=== PATIENT | female | born 1990 | race Two or more races ===

== ENCOUNTER → 2016-12-31 | Outpatient (CLI) | payer OTHER ==
--- NOTE | 2016-12-31 17:12 | REP ---
Right long finger series: Four views: History: Finger pain. Findings: Four views of the right long finger demonstrate normal bones, joints, and soft tissues. No fracture or subluxation is seen. Impression: Negative views of the right long finger. Signed by Albert Land MD 01/01/2017 10:43 A
== END ==
LOC: M LRY 16:34
PROVIDERS: ATTEND Physician Assistant
DX: M79.609 Pain in unspecified limb (principal)

== ENCOUNTER 2018-04-02 11:27 | Emergency (ER) | payer OTHER ==
[2018-04-02] MEDS: NS 1,000 ML IV (12:27)
[2018-04-02] MEDS: ONDANSETRON 4MG/2ML VIAL (J2405) IV (12:27)
[2018-04-02 12:42] LABS: BASO % 0.3 % (0.0-1.0); EOS # 0.1 10^3/uL (0.0-0.50); EOS % 0.5 % (0.0-3.0); HEMATOCRIT 36.7 % (36.0-47.0); HEMOGLOBIN 12.5 g/dl (12.0-15.5); IMMATURE GRANULOCYTE % 1.2 % (0-3.0); LYMPH # 2.5 10^3/uL (1.5-6.5); LYMPH % 16.4 % (24.0-44.0); MEAN CORPUSCULAR HEMOGLOBIN 30.9 pg (27.0-33.0); MEAN CORPUSCULAR HGB CONC 34.1 g/dl (32.0-36.5); MEAN CORPUSCULAR VOLUME 90.6 fl (80.0-96.0); MONO # 1.2 10^3/uL (0.0-0.8); MONO % 7.5 % (0.0-5.0); NEUTROPHILS # 11.3 10^3/uL (1.8-7.7); NEUTROPHILS % 74.1 % (36.0-66.0); PLATELET COUNT, AUTOMATED 298 10^3/uL (150-450); RED BLOOD COUNT 4.05 10^6/uL (4.00-5.40); RED CELL DISTRIBUTION WIDTH 13.1 % (11.5-14.5); WHITE BLOOD COUNT 15.3 10^3/uL (4.0-10.0)
[2018-04-02 12:51] LABS: ALBUMIN 2.6 GM/DL (3.2-5.2); ALBUMIN/GLOBULIN RATIO 0.57 (1.00-1.93); ALKALINE PHOSPHATASE 103 U/L (45-117); ALT/SGPT 15 U/L (12-78); AMYLASE 47 U/L (25-115); ANION GAP 9 MEQ/L (8-16); AST/SGOT 12 U/L (7-37); BILIRUBIN,DIRECT < 0.1 MG/DL (0.0-0.2); BILIRUBIN,TOTAL 0.2 MG/DL (0.2-1.0); BLOOD UREA NITROGEN 8 MG/DL (7-18); CARBON DIOXIDE LEVEL 22 MEQ/L (21-32); CHLORIDE LEVEL 106 MEQ/L (98-107); CREATININE FOR GFR 0.58 MG/DL (0.55-1.30); GLOMERULAR FILTRATION RATE > 60.0 (>60); GLUCOSE, FASTING 79 MG/DL (70-100); LIPASE 71 U/L (73-393); POTASSIUM SERUM 3.9 MEQ/L (3.5-5.1); SODIUM LEVEL 137 MEQ/L (136-145); TOTAL PROTEIN 7.2 GM/DL (6.4-8.2)
== END 2018-04-02 14:01 | disposition home or self-care (01) ==
LOC: M ED 11:27
DX: J06.9 Acute upper respiratory infection, unspecified (principal); G43.909 Migraine, unspecified, not intractable, without status migrainosus; Z88.5 Allergy status to narcotic agent; Z91.048 Other nonmedicinal substance allergy status; F17.210 Nicotine dependence, cigarettes, uncomplicated
CPT/HCPCS: J2405

== ENCOUNTER 2018-04-16 19:41 | Outpatient (CLI) | payer OTHER | END 2018-04-16 20:30 | disposition home or self-care (01) | LOC: M LDO 19:41 | DX: O99.89 Other specified diseases and conditions complicating pregnancy, childbirth and the puerperium (principal); Z3A.37 37 weeks gestation of pregnancy; R05 Cough; R07.81 Pleurodynia; M94.0 Chondrocostal junction syndrome [Tietze] | CPT/HCPCS: 59025 ==

== ENCOUNTER 2018-04-26 11:31 | Inpatient (IN) | payer OTHER, MEDICAID ==
[2018-04-26 12:57] LABS: HEMATOCRIT 36.6 % (36.0-47.0); HEMOGLOBIN 12.6 g/dl (12.0-15.5); MEAN CORPUSCULAR HEMOGLOBIN 31.7 pg (27.0-33.0); MEAN CORPUSCULAR HGB CONC 34.4 g/dl (32.0-36.5); MEAN CORPUSCULAR VOLUME 92.2 fl (80.0-96.0); PLATELET COUNT, AUTOMATED 259 10^3/uL (150-450); RED BLOOD COUNT 3.97 10^6/uL (4.00-5.40); RED CELL DISTRIBUTION WIDTH 13.6 % (11.5-14.5)
[2018-04-26] MEDS: LACTATED RINGER'S 1000 ML IV (15:01)
[2018-04-26] MEDS: OXYTOCIN DRIP 30 UNITS in APPROPRIATE DILUENT 1 EA IV (18:31)
[2018-04-26] MEDS: LR 1,000 ML IV (18:32)
[2018-04-27] MEDS ORDERED: FENTANYL 2MCG/ML ROPIVACAINE 0.2% IN 0.9% NACL 200ML IVBAG As Ordered (00:35)
[2018-04-27] MEDS ORDERED: FENTANYL/ROPIVACAINE/NACL BAG 200 ML EPIDURAL (02:00)
[2018-04-27] MEDS ORDERED: LACTATED RINGER'S 1000 ML IV (02:00)
[2018-04-27] MEDS ORDERED: EPIDURAL/PCA KEYS XX (02:00)
[2018-04-27] MEDS ORDERED: ePHEDrine SULFATE 25 MG/5 ML(5MG/ML) SYRINGE IV (02:00)
[2018-04-27] MEDS ORDERED: ONDANSETRON 4MG/2ML VIAL (J2405) IV (02:00)
[2018-04-27] MEDS ORDERED: diphenhydrAMINE INJ 50MG/ML VIAL (J1200) IV (02:00)
[2018-04-27] MEDS ORDERED: EPIDURAL COMMENT XX (02:00)
[2018-04-27] MEDS ORDERED: REFRIGERATOR IV KEYS XX (02:00)
[2018-04-27] MEDS ORDERED: NALOXONE INJ 0.4 MG/1 ML VIAL (J2310) IV (02:00)
[2018-04-27] MEDS: OXYTOCIN INJ 10 UNITS/ML VIAL (J2590) IV (07:30)
[2018-04-27 07:44] LABS: CORD GAS ABE A -2.7; CORD GAS HCO3 A 23.9 MEQ/L; CORD GAS O2 SAT A 41.2 %; CORD GAS PCO2 A 47.6 mmHg; CORD GAS PH A 7.319 UNITS; CORD GAS PO2 A 18.5 mmHg; CORD GAS SBC A 20.7 MEQ/L; CORD GAS TCO2 A 25.4 MEQ/L
[2018-04-27 07:45] LABS: CORD GAS ABE V -2.6; CORD GAS HCO3 V 22.7 MEQ/L; CORD GAS O2 SAT V 58.5 %; CORD GAS PCO2 V 41.4 mmHg; CORD GAS PH V 7.357 UNITS; CORD GAS PO2 V 23.8 mmHg; CORD GAS SBC V 21.2 MEQ/L
[2018-04-27] MEDS ORDERED: ANUSOL HC CREAM 30GM TOP (08:15)
[2018-04-27] MEDS ORDERED: ACETAMINOPHEN 500 MG TAB PO (08:15)
[2018-04-27] MEDS ORDERED: MOM 30ML SUSPENSION UDC PO (08:15)
[2018-04-27] MEDS ORDERED: MEASLES,MUMPS,RUBELLA VACCINE INJ (MMR-II) (90707) SC (08:15)
[2018-04-27] MEDS ORDERED: METHYLERGONOVINE MALEATE 0.2 MG TAB PO (08:15)
[2018-04-27] MEDS ORDERED: RHOGAM 300 MCG (1500 IU) INJ (J2790) IM (08:15)
[2018-04-27] MEDS ORDERED: DIBUCAINE 1% OINTMENT 30GM TOP (08:15)
[2018-04-27] MEDS: PRENATAL VITAMINS CHEWABLE TABLET PO (09:00)
[2018-04-27] MEDS ORDERED: CYCLOBENZAPRINE 10 MG TAB PO (20:45)
[2018-04-27] MEDS: IBUPROFEN 800 MG TAB PO (20:58)
[2018-04-27] MEDS: DOCUSATE SODIUM 100 MG CAP PO (20:58)
[2018-04-28 06:24] LABS: HEMATOCRIT 31.7 % (36.0-47.0); MEAN CORPUSCULAR HEMOGLOBIN 31.5 pg (27.0-33.0); MEAN CORPUSCULAR HGB CONC 33.1 g/dl (32.0-36.5); MEAN CORPUSCULAR VOLUME 95.2 fl (80.0-96.0); PLATELET COUNT, AUTOMATED 218 10^3/uL (150-450); RED BLOOD COUNT 3.33 10^6/uL (4.00-5.40); RED CELL DISTRIBUTION WIDTH 14.1 % (11.5-14.5)
[2018-04-28 06:30] LABS: HEMOGLOBIN 10.5 g/dl (12.0-15.5)
[2018-04-28] MEDS: PRENATAL VITAMINS CHEWABLE TABLET PO (09:00)
[2018-04-28] MEDS: CYCLOBENZAPRINE 10 MG TAB PO (09:41)
== END 2018-04-28 16:00 | disposition home or self-care (01) | DRG 775 ==
LOC: M LDO 11:31 → M LDI 12:02 → M OBS 04-27 09:28
PROVIDERS: Obstetrics & Gynecology
PROC: 10E0XZZ Delivery of Products of Conception, External Approach (ICD-10-PCS; principal; 2018-04-27)
PROC: 0HQ9XZZ Repair Perineum Skin, External Approach (ICD-10-PCS; 2018-04-27)
DX: O99.214 Obesity complicating childbirth (principal); Z3A.38 38 weeks gestation of pregnancy; Z37.0 Single live birth; E66.9 Obesity, unspecified; Z68.33 Body mass index [BMI] 33.0-33.9, adult; F17.210 Nicotine dependence, cigarettes, uncomplicated; O64.5XX0 Obstructed labor due to compound presentation, not applicable or unspecified; O70.0 First degree perineal laceration during delivery; M94.0 Chondrocostal junction syndrome [Tietze]; O99.334 Smoking (tobacco) complicating childbirth; O26.893 Other specified pregnancy related conditions, third trimester

== ENCOUNTER → 2018-07-13 | Outpatient (CLI) | payer OTHER, MEDICAID | LOC: M RAD 14:01 | DX: R05 Cough (principal); R06.01 Orthopnea | CPT/HCPCS: 71046 ==

== ENCOUNTER → 2018-07-17 | Outpatient (REF) | payer OTHER ==
[2018-07-17 14:24] LABS: HCG, SERUM QUANTITATIVE 2534 MIU/ML
== END ==
LOC: M SFHCLERA 10:57
DX: Z30.430 Encounter for insertion of intrauterine contraceptive device (principal)
CPT/HCPCS: 84702

== ENCOUNTER → 2018-07-20 | Outpatient (REF) | payer OTHER ==
[2018-07-20 14:04] LABS: HCG, SERUM QUANTITATIVE 4888 MIU/ML
== END ==
LOC: M SFHCLERA 10:21
DX: Z30.430 Encounter for insertion of intrauterine contraceptive device (principal)

== ENCOUNTER → 2018-07-24 | Outpatient (REF) | payer OTHER ==
[2018-07-24 17:11] LABS: HCG, SERUM QUANTITATIVE 9134 MIU/ML
== END ==
LOC: M SFHCPLAZ 12:08
DX: Z32.01 Encounter for pregnancy test, result positive (principal)

== ENCOUNTER → 2018-08-04 | Outpatient (CLI) | payer OTHER | LOC: M WHC 08:33 | DX: Z32.01 Encounter for pregnancy test, result positive (principal); Z3A.01 Less than 8 weeks gestation of pregnancy | CPT/HCPCS: 76801 ==

== ENCOUNTER → 2018-08-11 | Outpatient (CLI) | payer OTHER ==
[2018-08-11 16:05] LABS: AMORPHOUS SEDIMENT LARGE (NEGATIVE); APPEARANCE, URINE CLOUDY (CLEAR); BACTERIA, URINE AUTO NEGATIVE (NEGATIVE); BILIRUBIN, URINE AUTO NEGATIVE (NEGATIVE); BLOOD, URINE BLOOD NEGATIVE (NEGATIVE); COLOR, URINE AMBER (YELLOW); GLUCOSE, URINE (UA) AUTO NEGATIVE (NEGATIVE); KETONE, URINE AUTO TRACE mg/dL (NEGATIVE); LEUKOCYTE ESTERASE, URINE AUTO NEGATIVE (NEGATIVE); MUCUS, URINE SMALL (NEGATIVE); NITRITE, URINE AUTO NEGATIVE (NEGATIVE); PROTEIN, URINE AUTO NEGATIVE (NEGATIVE); RBC, URINE AUTO 3 /HPF (0-3); SPECIFIC GRAVITY URINE AUTO 1.023 (1.002-1.035); SQUAMOUS EPITHELIAL CELL UR AU 6 /HPF (0-6); UROBILINOGEN, URINE AUTO 0.2 mg/dL (0.0-2.0); WBC, URINE AUTO 1 /HPF (0-3)
[2018-08-11 17:37] LABS: CHLAMYDIA DNA AMPLIFICATION NEGATIVE (NEGATIVE); GC DNA AMPLIFICATION NEGATIVE (NEGATIVE)
[2018-08-12 08:12] LABS: HIV 1&2 SCREEN CENTAUR NEGATIVE (NEGATIVE)
== END ==
LOC: M LAB 15:21
DX: Z34.90 Encounter for supervision of normal pregnancy, unspecified, unspecified trimester (principal)
CPT/HCPCS: 36415

== ENCOUNTER → 2018-08-31 | Outpatient (CLI) | payer OTHER ==
[2018-08-31 13:28] LABS: BASO % 0.1 % (0.0-1.0); EOS # 0.1 10^3/uL (0.0-0.50); EOS % 1.2 % (0.0-3.0); HEMATOCRIT 37.9 % (36.0-47.0); HEMOGLOBIN 12.8 g/dl (12.0-15.5); IMMATURE GRANULOCYTE % 0.2 % (0-3.0); LYMPH # 2.5 10^3/uL (1.5-4.5); MEAN CORPUSCULAR HEMOGLOBIN 30.5 pg (27.0-33.0); MEAN CORPUSCULAR HGB CONC 33.8 g/dl (32.0-36.5); MEAN CORPUSCULAR VOLUME 90.2 fl (80.0-96.0); MONO # 0.6 10^3/uL (0.0-0.8); MONO % 6.7 % (0.0-5.0); NEUTROPHILS # 5.4 10^3/uL (1.8-7.7); NEUTROPHILS % 62.8 % (36.0-66.0); PLATELET COUNT, AUTOMATED 299 10^3/uL (150-450); RED CELL DISTRIBUTION WIDTH 12.3 % (11.5-14.5); WHITE BLOOD COUNT 8.5 10^3/uL (4.0-10.0)
[2018-08-31 14:20] LABS: HEPATITIS C VIRUS ABY INDEX 0.1 INDEX (<0.8)
[2018-08-31 14:20] LABS: HBsAg Prenatal NEGATIVE (NEGATIVE); HIV 1&2 SCREEN CENTAUR NEGATIVE (NEGATIVE); RUBELLA IgG QUALITATIVE IMMUNE (IMMUNE)
[2018-08-31 15:18] LABS: CHLAMYDIA DNA AMPLIFICATION NEGATIVE (NEGATIVE); GC DNA AMPLIFICATION NEGATIVE (NEGATIVE)
== END ==
LOC: M SMT 10:39
DX: Z36.89 Encounter for other specified antenatal screening (principal)
CPT/HCPCS: 86762

== ENCOUNTER 2018-10-01 16:05 | Emergency (ER) | payer OTHER ==
[~2018-10-01] VITALS: Ht 160 cm; Wt 81.6 kg
[~2018-10-01 16:05] MED LIST: ANUS2.5C2 TOP; COLA100C5 PO; DIBU10OI TOP; MAPA500T2 PO; MOTR200T44 PO; Prenatal PO; ZOFR4TAB14 PO
[2018-10-01] MEDS ORDERED: ZOFR4TAB16 PO (16:15)
[2018-10-01 16:49] LABS: APPEARANCE, URINE HAZY (CLEAR); BACTERIA, URINE AUTO NEGATIVE (NEGATIVE); BILIRUBIN, URINE AUTO NEGATIVE (NEGATIVE); BLOOD, URINE BLOOD NEGATIVE (NEGATIVE); COLOR, URINE YELLOW (YELLOW); GLUCOSE, URINE (UA) AUTO NEGATIVE (NEGATIVE); KETONE, URINE AUTO TRACE mg/dL (NEGATIVE); LEUKOCYTE ESTERASE, URINE AUTO 1+ (NEGATIVE); MUCUS, URINE SMALL (NEGATIVE); NITRITE, URINE AUTO NEGATIVE (NEGATIVE); PROTEIN, URINE AUTO NEGATIVE (NEGATIVE); RBC, URINE AUTO 2 /HPF (0-3); SPECIFIC GRAVITY URINE AUTO 1.021 (1.002-1.035); SQUAMOUS EPITHELIAL CELL UR AU 4 /HPF (0-6); UROBILINOGEN, URINE AUTO 0.2 mg/dL (0.0-2.0); WBC, URINE AUTO 4 /HPF (0-3)
[2018-10-01 16:57] LABS: BASO % 0.2 % (0.0-1.0); EOS # 0.1 10^3/uL (0.0-0.50); HEMATOCRIT 40.8 % (36.0-47.0); HEMOGLOBIN 13.9 g/dl (12.0-15.5); LYMPH # 2.7 10^3/uL (1.5-4.5); LYMPH % 19.3 % (24.0-44.0); MEAN CORPUSCULAR HEMOGLOBIN 30.5 pg (27.0-33.0); MEAN CORPUSCULAR HGB CONC 34.1 g/dl (32.0-36.5); MEAN CORPUSCULAR VOLUME 89.7 fl (80.0-96.0); MONO # 0.6 10^3/uL (0.0-0.8); MONO % 3.9 % (0.0-5.0); NEUTROPHILS # 10.5 10^3/uL (1.8-7.7); NEUTROPHILS % 75.2 % (36.0-66.0); PLATELET COUNT, AUTOMATED 332 10^3/uL (150-450); RED BLOOD COUNT 4.55 10^6/uL (4.00-5.40)
[2018-10-01] MEDS ORDERED: NS 1,000 ML IV ONE (17:15)
[2018-10-01] MEDS ORDERED: METOCLOPRAMIDE INJ 10MG/2ML VIAL (J2765) IV ONE (17:15)
--- NOTE | 2018-10-01 17:53 | REP ---
OB ULTRASOUND: Real-time sonographic evaluation of the gravid uterus is performed. There is a single living intrauterine gestation. The estimated gestational age is 15 weeks 6 days based on the first ultrasound, EDC 03/19/2019. Today's measurements indicate appropriate growth. BPD 35 mm = 16 weeks 6 days, at the 86th percentile. HC 124 mm = 16 weeks 2 days, at the 62nd percentile. AC 112 mm = 17 weeks 0 days, at the 80th percentile. Femur length 20 mm = 16 weeks 0 days, at the 52nd percentile. HC/AC ratio 1.11 within normal range. Estimated weight 158 grams at the 70th percentile. Cervix is closed and measures 3.7 cm in length. heart rate 155 beats per minute. position breech. Placenta is posterior and fundal with no previa or abruption. Amniotic fluid within normal limits. Focal round area in the anterior uterus measures 4.9 x 4.4 x 3.1 cm likely representing a uterine contraction. Electronically Signed by Kyler Martinez MD 10/01/2018 08:26 P
[2018-10-01] MEDS ORDERED: REGL10TA6 PO (17:59)
[2018-10-01 18:12] VITALS: BP 112/83
== END 2018-10-01 18:13 | disposition home or self-care (01) ==
LOC: M ED 16:05
DX: O20.8 Other hemorrhage in early pregnancy (principal); Z3A.16 16 weeks gestation of pregnancy; O99.332 Smoking (tobacco) complicating pregnancy, second trimester; Z79.899 Other long term (current) drug therapy; Z88.5 Allergy status to narcotic agent; Z91.89 Other specified personal risk factors, not elsewhere classified
CPT/HCPCS: 76811; 81001; 85025; 86850; 86900; 86901; 96374; 99284; J2765

== ENCOUNTER → 2018-10-19 | Outpatient (CLI) | payer OTHER ==
[~2018-10-19] MED LIST changes: +REGL10TA6 PO; +ZOFR4TAB16 PO
--- NOTE | 2018-10-19 11:45 | REP ---
Clinical: Anatomical evaluation. Comparison: 10/01/2018 . Findings: Examination demonstrates a single live intrauterine in cephalic presentation. motion is identified by technologist. Placenta is noted posterior fundal and grade zero without evidence for placenta previa or abruption. Amniotic fluid volume is normal. Cervix measures 3.2 cm in length and appears closed. No evidence for nuchal cord. Gestational age by LMP 18 weeks 0 days with CARLOS 03/22/2019 . Gestational age by current measurements 18 week 6 days with CARLOS 03/16/2019 . FHR equals 139 beats per minute. BPD 4.4 cm 19 weeks 1 day HC 16.2 cm 19 weeks 0 days AC 13.6 cm 19 weeks 0 days FL 2.9 cm 18 weeks 5 days HL 2.9 cm 19 weeks 3 days HC/AC ratio 1.20 Estimated weight 264 grams ( 64th percentile). Anatomical assessment demonstrates normal structures including cranium, choroid plexus, cavum, cerebellum/posterior fossa, facial features, lungs, four-chamber heart/ventricular outflow tracts, diaphragm, stomach, cord insertion/three-vessel cord, kidneys/bladder, spine, and extremities. Impression: Single live intrauterine in cephalic presentation demonstrating appropriate interval growth. Anatomical assessment is complete and normal. No gross abnormalities are identified. Electronically Signed by Jaspal Perkins MD 10/19/2018 11:37 A
== END ==
LOC: M LRY 09:11
PROVIDERS: ATTEND Advanced Practice Midwife
DX: Z36.89 Encounter for other specified antenatal screening (principal); Z3A.18 18 weeks gestation of pregnancy

== ENCOUNTER 2018-12-02 20:33 | Outpatient (CLI) | payer MEDICAID, OTHER ==
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
== END 2018-12-02 21:45 | disposition home or self-care (01) ==
LOC: M LDO 20:33
PROVIDERS: ATTEND Advanced Practice Midwife
DX: O36.8120 Decreased fetal movements, second trimester, not applicable or unspecified (principal); O26.892 Other specified pregnancy related conditions, second trimester; R10.30 Lower abdominal pain, unspecified; Z3A.24 24 weeks gestation of pregnancy

== ENCOUNTER → 2018-12-18 | Outpatient (CLI) | payer OTHER ==
[~2018-12-18] MED LIST changes: +PROZ20CA11 PO; +ROBILIQ13 PO
[2018-12-18 12:58] LABS: HEMOGLOBIN 11.7 g/dl (12.0-15.5); MEAN CORPUSCULAR HGB CONC 32.5 g/dl (32.0-36.5); MEAN CORPUSCULAR VOLUME 95.2 fl (80.0-96.0); PLATELET COUNT, AUTOMATED 317 10^3/uL (150-450); RED BLOOD COUNT 3.78 10^6/uL (4.00-5.40); WHITE BLOOD COUNT 8.8 10^3/uL (4.0-10.0)
== END ==
LOC: M LAB 11:27
PROVIDERS: ATTEND Advanced Practice Midwife
DX: Z36.89 Encounter for other specified antenatal screening (principal); Z3A.26 26 weeks gestation of pregnancy

== ENCOUNTER 2018-12-23 17:02 | Outpatient (CLI) | payer OTHER ==
[~2018-12-23] VITALS: Ht 160 cm; Wt 81.4 kg
[~2018-12-23 17:02] MED LIST changes: -PROZ20CA11 PO; -ROBILIQ13 PO
[2018-12-23 17:24] VITALS: BP 112/62
[2018-12-23] MEDS ORDERED: ROBILIQ13 PO (18:36)
[2018-12-23] MEDS ORDERED: PROZ20CA11 PO (18:36)
== END 2018-12-23 19:30 | disposition home or self-care (01) ==
LOC: M LDO 17:02
PROVIDERS: ATTEND Specialist
DX: Z04.3 Encounter for examination and observation following other accident (principal); O99.89 Other specified diseases and conditions complicating pregnancy, childbirth and the puerperium; R10.30 Lower abdominal pain, unspecified; Z3A.27 27 weeks gestation of pregnancy; W10.2XXA Fall (on)(from) incline, initial encounter; Y92.89 Other specified places as the place of occurrence of the external cause; Y93.89 Activity, other specified; Y99.8 Other external cause status

== ENCOUNTER → 2019-02-24 | Outpatient (REF) | payer OTHER, MEDICAID ==
[~2019-02-24] MED LIST changes: +PROZ20CA11 PO; +ROBILIQ13 PO
== END ==
LOC: M LAB REF 13:14
PROVIDERS: ATTEND Advanced Practice Midwife
DX: Z34.83 Encounter for supervision of other normal pregnancy, third trimester (principal)

== ENCOUNTER 2019-03-09 00:55 | Outpatient (CLI) | payer MEDICAID, OTHER ==
[~2019-03-09] VITALS: Ht 160 cm; Wt 85.1 kg
[2019-03-09 01:16] VITALS: BP 111/68
[2019-03-09 02:07] VITALS: BP 111/60
[2019-03-09] MEDS ORDERED: ACETAMINOPHEN 500 MG TAB PO ONE (03:00)
[2019-03-09 03:33] VITALS: BP 109/65
[2019-03-09 05:26] VITALS: BP 103/55
[2019-03-09 06:13] VITALS: BP 107/53
--- NOTE | 2019-03-09 09:45 | IPNPDOC ---
Text Note Date of Service The patient was seen on 03/09/19. NOTE Subjective: Patient is a 28-year-old female who is a at 38.5 weeks gestation. She presents with complaints of irregular contractions. Reports active movement. Denies leaking of fluid. Denies vaginal bleeding. She reports her contractions started at 2330 and have gotten more intense but still not consistent. Objective: VS: see below. FHR is 120, moderate variability, positive accelerations, no decelerations. Contractions irregular. Patient able to rest and sleep through contractions. After 3 hours there was no cervical change. Patient was 2/50/ballotable, soft, midposition, no show. Assessment: IUP at 38.4 weeks gestation, Category I FHR tracing, not in active labor. Plan: Patient discharged to home. Labor precautions reviewed. Access to care, kick count, labor signs reviewed, abdominal trauma, and danger signs reviewed. Patient to follow-up with routine OB appointment, which is scheduled this Friday. VS,Emerybone, I+O VS, Fishbone, I+O Vital Signs Date Time Temp Pulse Resp B/P (MAP) Pulse Ox O2 Delivery O2 Flow Rate FiO2 03/09/19 06:13 67 107/53 (71) 03/09/19 05:26 98.2 16 MARGOTH ENGLAND CNM Mar 09, 2019 09:45
== END 2019-03-09 06:15 | disposition home or self-care (01) ==
LOC: M LDO 00:55
PROVIDERS: ATTEND Advanced Practice Midwife
DX: O26.893 Other specified pregnancy related conditions, third trimester (principal); O47.1 False labor at or after 37 completed weeks of gestation; Z3A.38 38 weeks gestation of pregnancy

== ENCOUNTER 2019-03-12 19:27 | Outpatient (CLI) | payer OTHER ==
[~2019-03-12] VITALS: Ht 160 cm; Wt 86.2 kg
[2019-03-12 19:45] VITALS: BP 112/60
--- NOTE | 2019-03-12 21:59 | IPNPDOC ---
Text Note Date of Service The patient was seen on 03/12/19. NOTE Outpatient 28yo CARLOS 05/19/19. Presents @ 39 wks with reports of UC on and off for the last few days. Denies LOF or bleeding. Reports good activity. States had episodes of diarrhea last night and this am due to reza. Reports feeling dehydrated. States the contractions she had earlier today have diminished in frequency and strength NAD, family present VSS Abdomen soft, gravid Rare UC NST Cat I initially with episodes of Cat II BPP ordered SVE /-3, unchanged from yesterday's office exam, no show on glove. VS,Fishbone, I+O VS, Fishbone, I+O Vital Signs Date Time Temp Pulse Resp B/P (MAP) Pulse Ox O2 Delivery O2 Flow Rate FiO2 03/12/19 19:45 98.3 83 18 112/60 (77) Miranda Salgado CNM Mar 12, 2019 21:59
--- NOTE | 2019-03-12 22:05 | REPVR ---
EXAM: US Biophysical Profile Without Non-Stress Test EXAM DATE/TIME: 03/12/2019 9:26 PM CLINICAL HISTORY: 28 years old, female; Abnormal findings; Abnormal radiological screening; Third; ; Additional info: Nonreassuring nst TECHNIQUE: Imaging protocol: US biophysical profile without non-stress testing. COMPARISON: US OBS COMPLETE 10/19/2018 9:25 AM FINDINGS: Other findings: Cephalic presentation. Cervix measures 3.6 cm. Amniotic fluid index 18.6 cm. heart rate 132 beats per minute. Breathin/2 Gross body movements: 2/2 tone: 2/2 Qualitative amniotic fluid: 2/2 SD ratio of the umbilical cord is 2.05. IMPRESSION: This biophysical profile score 8 out of 8. Electronically signed by: Rob Paez On 03/12/2019 22:04:48 PM
--- NOTE | 2019-03-12 22:30 | IPNPDOC ---
Text Note Date of Service The patient was seen on 03/12/19. NOTE BPP 8/ Fetus is very active Pt desires IOL this weekend. Reviewed social induction issues Discharged home with instructions and social induction protocol reviewed. VS,Fishbone, I+O VS, Fishbone, I+O Vital Signs Date Time Temp Pulse Resp B/P (MAP) Pulse Ox O2 Delivery O2 Flow Rate FiO2 03/12/19 19:45 98.3 83 18 112/60 (77) Miranda Salgado CNM Mar 12, 2019 22:30
== END 2019-03-12 22:34 | disposition home or self-care (01) ==
LOC: M LDO 19:27
PROVIDERS: ATTEND Advanced Practice Midwife
DX: O26.893 Other specified pregnancy related conditions, third trimester (principal); Z3A.39 39 weeks gestation of pregnancy

== ENCOUNTER 2019-03-13 10:17 | Inpatient (IN) | payer OTHER ==
[~2019-03-13] VITALS: Ht 160 cm; Wt 85.0 kg
[2019-03-13] VITALS (23 sets, daily range): BP systolic 98–131; BP diastolic 53–73
[2019-03-13 11:44] LABS: HEMOGLOBIN 11.1 g/dl (12.0-15.5); MEAN CORPUSCULAR HEMOGLOBIN 31.3 pg (27.0-33.0); MEAN CORPUSCULAR HGB CONC 33.6 g/dl (32.0-36.5); PLATELET COUNT, AUTOMATED 207 10^3/uL (150-450); RED BLOOD COUNT 3.55 10^6/uL (4.00-5.40); WHITE BLOOD COUNT 8.8 10^3/uL (4.0-10.0)
[2019-03-13] MEDS ORDERED: CALCIUM GLUCONATE 1,000 MG in D5W MINI-BAG PLUS 100 ML IV PRN (14:00)
[2019-03-13] MEDS ORDERED: OXYTOCIN DRIP 30 UNITS in APPROPRIATE DILUENT 1 EA IV SCH (14:30)
[2019-03-13] MEDS ORDERED: MAG Sulf (L&D) 4 GM/100 ML 4 GM in APPROPRIATE DILUENT 1 EA IV ONE (14:30)
[2019-03-13] MEDS: LR 1,000 ML IV SCH ×3 (14:39→22:42)
[2019-03-13] MEDS ORDERED: MAG Sulf (OBGYN) 20GM/500ML 20,000 MG in APPROPRIATE DILUENT 1 EA IV SCH (15:00)
--- NOTE | 2019-03-13 17:10 | HPE ---
DATE OF ADMISSION: 03/13/2019 REASON FOR ADMISSION: Induction of labor. HISTORY OF PRESENT ILLNESS: Ms. Davis is a 28-year-old 3, para 1 who presents at 39 weeks 1 day estimated gestational age by a 7-week ultrasound for induction of labor. She initiated care in the first trimester and has been appropriate throughout. PAST MEDICAL HISTORY: None. PAST SURGICAL HISTORY: 1. She has had eye surgery. 2. Ankle surgery. 3. Breast augmentation. 4. Tonsillectomy. OBSTETRICAL HISTORY: She is a 3, para 1. She has had one term vaginal delivery proven to 7 pounds 13 ounces. MEDICATIONS: vitamins and Prozac. ALLERGIES: CODEINE. PHYSICAL EXAMINATION: VITAL SIGNS: Stable. She is afebrile. She has a category 1 heart rate tracing. GENERAL APPEARANCE: She is well appearing in no acute distress. LUNGS: Clear to auscultation bilaterally. CARDIOVASCULAR: Heart regular rate and rhythm. ABDOMEN: Gravid, nontender. Estimated weight (EFW) 3300 grams. CERVICAL: She was 3 cm dilated, 50% effaced, -3 station. LABORATORY DATA: Blood type is A positive. Antibody screen is negative. Rubella is immune. RPR is nonreactive. Hepatitis surface antigen is negative. HIV is negative. Hepatitis C is nonreactive. Chlamydia and gonorrhea screens are negative. She had a normal 1-hour Glucola. She is GBS negative. ASSESSMENT: Ms. Davis is a 28-year-old 3, para 1 who presents for an induction of labor at 39 weeks and 1 day estimated gestational age. 2. Reassuring status. PLAN: 1. Admit to labor and delivery, complete blood count (CBC), RPR, type and screen. 2. Patient has been thoroughly counseled in regard to induction of labor. I discussed medication as well as procedures performed in labor and delivery. She has also been verbally consented for emergency surgery, blood products, anesthesia, and desires to proceed with admission. 3. We will initiate her induction with Pitocin.
--- NOTE | 2019-03-13 23:23 | NUR ---
L&D Note: S: Feeling more uncomfortable. Pitocin off for cat II tracing O: vss, AF gen: cx: 4/75/-2,AROM clear A/P: 28yo IOL at 39w1d - recheck in 3-4 hrs Giselle Goddard MD
[2019-03-13] MEDS ORDERED: FENTANYL 2MCG/ML ROPIVACAINE 0.2% IN 0.9% NACL 100ML IVBAG As Ordered ONE (23:45)
[2019-03-14] VITALS (41 sets, daily range): BP systolic 92–145; BP diastolic 50–83
[2019-03-14] MEDS: LR 1,000 ML IV SCH ×2 (01:14→04:47)
[2019-03-14] MEDS ORDERED: EPIDURAL COMMENT XX SCH (03:00)
[2019-03-14] MEDS ORDERED: NALOXONE INJ 0.4 MG/1 ML VIAL (J2310) IV PRN (03:00)
[2019-03-14] MEDS ORDERED: REFRIGERATOR IV KEYS XX PRN (03:00)
[2019-03-14] MEDS ORDERED: ePHEDrine SULFATE 25 MG/5 ML(5MG/ML) SYRINGE IV PRN (03:00)
[2019-03-14] MEDS ORDERED: LACTATED RINGER'S 1000 ML IV PRN (03:00)
[2019-03-14] MEDS ORDERED: diphenhydrAMINE INJ 50MG/ML VIAL (J1200) IV PRN (03:00)
[2019-03-14] MEDS ORDERED: ONDANSETRON 4MG/2ML VIAL (J2405) IV PRN ×2 (03:00→08:45)
[2019-03-14] MEDS ORDERED: FENTANYL/ROPIVACAINE/NACL BAG 100 ML EPIDURAL SCH (03:00)
[2019-03-14] MEDS ORDERED: EPIDURAL/PCA KEYS XX PRN (03:00)
[2019-03-14] MEDS ORDERED: OXYTOCIN DRIP 30 UNITS in APPROPRIATE DILUENT 1 EA IV SCH (08:38)
[2019-03-14] MEDS ORDERED: MOM 30ML SUSPENSION UDC PO PRN (08:45)
[2019-03-14] MEDS ORDERED: DIBUCAINE 1% OINTMENT 30GM TOP PRN (08:45)
[2019-03-14] MEDS ORDERED: ACETAMINOPHEN TAB 650MG DOSE (2X325MG) PO PRN (08:45)
[2019-03-14] MEDS ORDERED: ANUSOL HC CREAM 30GM TOP PRN (08:45)
[2019-03-14] MEDS ORDERED: METHYLERGONOVINE MALEATE 0.2 MG TAB PO PRN (08:45)
[2019-03-14] MEDS ORDERED: RHOGAM 300 MCG (1500 IU) INJ (J2790) IM SCH (08:45)
[2019-03-14] MEDS ORDERED: DOCUSATE SODIUM 100 MG CAP PO PRN (08:45)
[2019-03-14] MEDS ORDERED: MEASLES,MUMPS,RUBELLA VACCINE INJ (MMR-II) (90707) SC SCH (08:45)
[2019-03-14] MEDS ORDERED: ACETAMINOPHEN 500 MG TAB PO PRN (08:45)
[2019-03-14] MEDS ORDERED: IBUPROFEN 600 MG TAB PO PRN (08:45)
[2019-03-14] MEDS: PRENATAL VITAMINS CHEWABLE TABLET PO SCH (09:10)
[2019-03-14] MEDS: IBUPROFEN 800 MG TAB PO PRN (09:10)
--- NOTE | 2019-03-14 10:21 | DN ---
DATE OF DELIVERY: 03/14/2019 TIME OF : 0818 hours. GENDER: Female. SCORES: 9 and 9. WEIGHT: 3460 grams or 7 pounds 10 ounces. LACERATION: First-degree midline laceration. ESTIMATED BLOOD LOSS: 300 mL. ANESTHESIA: Epidural. COUNTS: 5 laparotomy sponges accounted for prior to and after delivery. One sharp removed from delivery field. DELIVERY NOTE: On 03/14/2019, at 0818 hours, Ms. Davis, a 28-year-old, 3, now para 2, had a spontaneous vaginal delivery of a live born female infant, scores 9 and 9, weight was 3460 grams, 7 pounds 10 ounces. Head was delivered occiput anterior (OA) followed by delivery of shoulders and corpus. Infant was handed to mom with a good cry. Cord was clamped times two, it was cut by patient's mother. Placenta was then drained and delivered grossly intact. A premixed bag of 500 mL of normal saline with the 30 units of Pitocin was then bolused along with uterine massage. The uterus firm. On inspection, there was a first-degree midline laceration, which was repaired with #3-0 Vicryl Rapide. On reinspection, cervix, vagina, and perineum were grossly intact and hemostatic. Mom and baby recovered in stable condition. Mom has decided to name their daughter
[2019-03-15 06:00] VITALS: BP 110/67
--- NOTE | 2019-03-15 07:46 | NUR ---
PPD#1 S: Doing well w/o complaints. O: vss, AF Gen: well appearing abd: soft, nttp, FF@u-3 A/P: PPD# 1 s/p -recovering in stable condition -cont routine care Giselle Goddard MD
[2019-03-15] MEDS: PRENATAL VITAMINS CHEWABLE TABLET PO SCH (08:43)
[2019-03-15] MEDS: IBUPROFEN 800 MG TAB PO PRN (12:12)
[2019-03-15] MEDS ORDERED: ACET-683 PO (15:03)
[2019-03-15] MEDS ORDERED: IBUP80TA PO (15:03)
== END 2019-03-15 16:00 | disposition home or self-care (01) | DRG 560 ==
LOC: M LDI 10:17 → M OBS 03-14 10:31
PROVIDERS: ADMIT Obstetrics & Gynecology; ATTEND Obstetrics & Gynecology
PROC: 3E033VJ Introduction of Other Hormone into Peripheral Vein, Percutaneous Approach (ICD-10-PCS; 2019-03-13)
PROC: 10E0XZZ Delivery of Products of Conception, External Approach (ICD-10-PCS; principal; 2019-03-14)
PROC: 0HQ9XZZ Repair Perineum Skin, External Approach (ICD-10-PCS; 2019-03-14)
DX: O70.0 First degree perineal laceration during delivery (principal); Z37.0 Single live birth; Z3A.39 39 weeks gestation of pregnancy

== ENCOUNTER → 2019-05-05 | Outpatient (CLI) | payer OTHER ==
[~2019-05-05] MED LIST changes: +ACET-683 PO; +IBUP80TA PO
== END ==
LOC: M LAB 09:14
PROVIDERS: ATTEND Advanced Practice Midwife
DX: N91.2 Amenorrhea, unspecified (principal)

== ENCOUNTER 2019-09-19 10:45 | Emergency (ER) | payer OTHER ==
--- NOTE | 2019-09-19 11:20 | REP ---
Clinical: Chronic cough . Comparison: 07/13/2018 . Technique: PA and lateral. Findings: The mediastinum and cardiac silhouette are normal. The lung coelho are clear and without acute consolidation, effusion, or pneumothorax. The skeletal structures are intact and normal. Impression: 1. No acute cardiopulmonary process. Electronically Signed by Jaspal Perkins MD 09/19/2019 11:11 A
[2019-09-19 12:30] LABS: BASO % 0.2 % (0.0-1.0); EOS # 0.2 10^3/uL (0.0-0.5); EOS % 2.6 % (0.0-3.0); HEMATOCRIT 41.4 % (36.0-47.0); HEMOGLOBIN 13.7 g/dl (12.0-15.5); LYMPH # 3.6 10^3/uL (1.5-5.0); LYMPH % 42.3 % (24.0-44.0); MEAN CORPUSCULAR HEMOGLOBIN 29.7 pg (27.0-33.0); MEAN CORPUSCULAR HGB CONC 33.1 g/dl (32.0-36.5); MEAN CORPUSCULAR VOLUME 89.6 fl (80.0-96.0); MONO # 0.7 10^3/uL (0.0-0.8); MONO % 7.8 % (0.0-5.0); NEUTROPHILS % 46.9 % (36.0-66.0); PLATELET COUNT, AUTOMATED 453 10^3/uL (150-450); RED BLOOD COUNT 4.62 10^6/uL (4.00-5.40); WHITE BLOOD COUNT 8.5 10^3/uL (4.0-10.0)
[2019-09-19 13:06] LABS: INFLUENZA A AMPLIFICATION NEGATIVE (NEGATIVE); INFLUENZA B AMPLIFICATION NEGATIVE (NEGATIVE)
[2019-09-19] MEDS ORDERED: PSEU-52 PO (13:28)
[2019-09-19] MEDS ORDERED: TESS100C PO (13:28)
[2019-09-19 13:46] VITALS: BP 123/66
== END 2019-09-19 13:52 | disposition home or self-care (01) ==
LOC: M ED 10:45
DX: J06.9 Acute upper respiratory infection, unspecified (principal); F17.200 Nicotine dependence, unspecified, uncomplicated; F41.9 Anxiety disorder, unspecified; Z79.899 Other long term (current) drug therapy; Z87.09 Personal history of other diseases of the respiratory system

== ENCOUNTER 2019-10-29 22:33 | Emergency (ER) | payer OTHER ==
[~2019-10-29] VITALS: Ht 160 cm; Wt 78.6 kg
[~2019-10-29 22:33] MED LIST changes: +PSEU-52 PO; +TESS100C PO
[2019-10-29 22:34] VITALS: BP 131/97
[2019-10-30 00:43] LABS: INFLUENZA A AMPLIFICATION NEGATIVE (NEGATIVE); INFLUENZA B AMPLIFICATION NEGATIVE (NEGATIVE)
== END 2019-10-30 01:20 | disposition home or self-care (01) ==
LOC: M ED 22:33
DX: J06.9 Acute upper respiratory infection, unspecified (principal); H92.01 Otalgia, right ear; F33.9 Major depressive disorder, recurrent, unspecified; F41.9 Anxiety disorder, unspecified; G43.909 Migraine, unspecified, not intractable, without status migrainosus; Z79.899 Other long term (current) drug therapy; Z88.5 Allergy status to narcotic agent; F17.210 Nicotine dependence, cigarettes, uncomplicated

== ENCOUNTER 2020-03-18 22:48 | Emergency (ER) | payer OTHER ==
[~2020-03-18] VITALS: Ht 160 cm; Wt 78.4 kg
[2020-03-18] MEDS ORDERED: NS 1,000 ML IV ONE (23:30)
[2020-03-18] MEDS ORDERED: KETOROLAC 30 MG/ML 1ML VIAL IV ONE (23:30)
[2020-03-19] MEDS ORDERED: ISOVUE-370 76% 100ML VIAL As Ordered ONE (00:08)
[2020-03-19 00:10] LABS: BASO % 0.1 % (0.0-1.0); EOS # 0.1 10^3/uL (0.0-0.5); EOS % 0.5 % (0.0-3.0); HEMATOCRIT 38.7 % (36.0-47.0); HEMOGLOBIN 12.7 g/dl (12.0-15.5); LYMPH # 2.3 10^3/uL (1.5-5.0); LYMPH % 16.7 % (24.0-44.0); MEAN CORPUSCULAR HEMOGLOBIN 29.2 pg (27.0-33.0); MEAN CORPUSCULAR HGB CONC 32.8 g/dl (32.0-36.5); MONO # 0.8 10^3/uL (0.0-0.8); NEUTROPHILS # 10.4 10^3/uL (1.5-8.5); NEUTROPHILS % 76.2 % (36.0-66.0); PLATELET COUNT, AUTOMATED 333 10^3/uL (150-450); RED BLOOD COUNT 4.35 10^6/uL (4.00-5.40); WHITE BLOOD COUNT 13.6 10^3/uL (4.0-10.0)
[2020-03-19 00:21] LABS: INR 1.02; PROTHROMBIN TIME 13.1 SECONDS (11.8-14.0)
[2020-03-19 00:22] LABS: PARTIAL THROMBOPLASTIN TIME 26.9 SECONDS (25.0-38.4)
[2020-03-19 00:36] LABS: CK-MB VALUE MASS 1.5 NG/ML (<3.6); CPK CREATINE PHOSPHOKINASE 160 U/L (26-192); ETHYL ALCOHOL (ETHANOL) 0.003 % (0.000-0.010); MB/CK RELATIVE INDEX 0.94 (< OR =4); TROPONIN I < 0.02 NG/ML (< 0.10)
--- NOTE | 2020-03-19 00:45 | REPVR ---
PROCEDURE INFORMATION: Exam: CT Cervical Spine Without Contrast Exam date and time: 03/18/2020 12:35 AM Age: 29 years old Clinical indication: Injury or trauma; Fall; Initial encounter; Blunt trauma; Additional info: Trauma, fall down stairs + loc TECHNIQUE: Imaging protocol: Computed tomography images of the cervical spine without contrast. Radiation optimization: All CT scans at this facility use at least one of these dose optimization techniques: automated exposure control; mA and/or kV adjustment per patient size (includes targeted exams where dose is matched to clinical indication); or iterative reconstruction. COMPARISON: No relevant prior studies available. FINDINGS: Vertebrae: No acute fracture. Normal alignment. Discs/Spinal canal/Neural foramina: No significant disc protrusion. No severe spinal canal stenosis. No significant neural foraminal narrowing. Soft tissues: Unremarkable. Lungs: Lung apices are normal. IMPRESSION: No acute findings. Electronically signed by: Camden Bang On 03/19/2020 00:45:03 AM
--- NOTE | 2020-03-19 00:46 | REPVR ---
PROCEDURE INFORMATION: Exam: CT Head Without Contrast Exam date and time: 03/18/2020 12:35 AM Age: 29 years old Clinical indication: Injury or trauma; Fall; Initial encounter; Blunt trauma (contusions or hematomas); Additional info: Trauma, fall down stairs + loc TECHNIQUE: Imaging protocol: Computed tomography of the head without contrast. Radiation optimization: All CT scans at this facility use at least one of these dose optimization techniques: automated exposure control; mA and/or kV adjustment per patient size (includes targeted exams where dose is matched to clinical indication); or iterative reconstruction. COMPARISON: No relevant prior studies available. FINDINGS: Brain: Normal. No hemorrhage. Unremarkable white matter. No mass effect. Ventricles: Normal. No ventriculomegaly. Bones/joints: Unremarkable. No acute fracture. Sinuses: Mild paranasal sinus disease. Mastoid air cells: Visualized mastoid air cells are well aerated. Soft tissues: Unremarkable. IMPRESSION: No acute intracranial abnormality. Electronically signed by: Camden Bang On 03/19/2020 00:46:17 AM
--- NOTE | 2020-03-19 00:51 | REPVR ---
PROCEDURE INFORMATION: Exam: CT Chest With Contrast Exam date and time: 03/18/2020 12:35 AM Age: 29 years old Clinical indication: Injury or trauma; Fall; Initial encounter; Blunt trauma (contusions or hematomas); Additional info: Trauma, fall down stairs + loc, pain with breathing TECHNIQUE: Imaging protocol: Computed tomography of the chest with intravenous contrast. Radiation optimization: All CT scans at this facility use at least one of these dose optimization techniques: automated exposure control; mA and/or kV adjustment per patient size (includes targeted exams where dose is matched to clinical indication); or iterative reconstruction. Contrast material: ISOVUE 370; Contrast volume: 75 ml; Contrast route: INTRAVENOUS (IV); COMPARISON: CR Chest, 2 view PA, Lat 09/19/2019 11:03 AM FINDINGS: Lungs: Unremarkable. No consolidation. No masses. Pleural space: Unremarkable. No pneumothorax. No pleural effusion. Heart: Unremarkable. No cardiomegaly. No pericardial effusion. Mediastinal space: There is soft tissue conforming to the anterior mediastinum consistent with residual thymic tissue. Pulmonary arteries: The main pulmonary artery measures 19 mm. Aorta: The ascending thoracic aorta measures 30 mm. Lymph nodes: Unremarkable. No enlarged lymph nodes. Gallbladder and bile ducts: The gallbladder is contracted with no stones. Bones/joints: Nondisplaced fractures of the left 5th -7th ribs laterally. Probable nondisplaced fracture of the right 7th rib anterolaterally near the costochondral junction. Soft tissues: Unremarkable. IMPRESSION: 1. Nondisplaced fractures of the left 5th-7th ribs laterally and probably the right 7th rib anterolaterally. 2. Otherwise negative CT chest. Electronically signed by: Jacek Meng On 03/19/2020 00:51:26 AM
--- NOTE | 2020-03-19 00:53 | REPVR ---
PROCEDURE INFORMATION: Exam: CT Thoracic Spine Without Contrast Exam date and time: 03/18/2020 12:35 AM Age: 29 years old Clinical indication: Injury or trauma; Fall; Initial encounter; Blunt trauma (contusions or hematomas); Additional info: Trauma fall down stairs + loc with severe back pain TECHNIQUE: Imaging protocol: Computed tomography images of the thoracic spine without contrast. Radiation optimization: All CT scans at this facility use at least one of these dose optimization techniques: automated exposure control; mA and/or kV adjustment per patient size (includes targeted exams where dose is matched to clinical indication); or iterative reconstruction. COMPARISON: No relevant prior studies available. FINDINGS: Vertebrae: No acute fracture. Normal alignment. Discs/Spinal canal/Neural foramina: No significant disc protrusion. No severe spinal canal stenosis. No significant neural foraminal narrowing. Other bones/joints: Hypoplastic 12th ribs. Soft tissues: Unremarkable. IMPRESSION: Negative CT thoracic spine. No fracture or subluxation is evident and no spinal or foraminal stenosis. Electronically signed by: Jacek Meng On 03/19/2020 00:53:29 AM
[2020-03-19] MEDS ORDERED: LIDO5DIS41 TOP (01:06)
[2020-03-19] MEDS ORDERED: NORC1TAB7 PO (01:06)
[2020-03-19 01:13] VITALS: BP 127/82
[2020-03-19] MEDS ORDERED: NORCO, ANEXSIA 5/325MG TABLET (HYDROcodone/ACETAMINOPHEN) PO ONE (01:15)
[2020-03-19] MEDS ORDERED: LIDOCAINE 5% (LIDODERM) PATCH TD ONE (01:15)
[2020-03-19 01:38] LABS: AMPHETAMINES LEVEL URINE NEGATIVE (NEGATIVE); BARBITURATES URINE NEGATIVE (NEGATIVE); BENZODIAZEPINES URINE NEGATIVE (NEGATIVE); CANNABINOIDS URINE NEGATIVE (NEGATIVE); COCAINE METABOLITE URINE NEGATIVE (NEGATIVE); METHADONE URINE NEGATIVE (NEGATIVE); OPIATES URINE NEGATIVE (NEGATIVE); PHENCYCLIDINE URINE NEGATIVE (NEGATIVE)
[2020-03-19] MEDS ORDERED: **NOTE PATIENT COMMENT** MISC XX SCH (21:00)
--- NOTE | 2020-03-20 07:54 | ECGEPIP ---
[facility] - ED Test Date: 2020-03-18 Pat Name: YANCY SERNA Department: Room: - Gender: Female Telephone Advice Nurse: sue : [id number] Requested By: CHRISTOPHER VAUGHN Order Number: [id number] Reading MD: Sofia Wilks Measurements Intervals [place] Rate: 82 P: 58 IA: 174 QRS: 70 QRSD: 93 T: 80 QT: 375 QTc: 438 Interpretive Statements SINUS RHYTHM NONSPECIFIC T-WAVE ABNORMALITY No prior Electronically Signed on 03-20-2020 7:54:19 EDT by Sofia Wilks
== END 2020-03-19 01:40 | disposition home or self-care (01) ==
LOC: M ED 22:48
DX: S22.42XA Multiple fractures of ribs, left side, initial encounter for closed fracture (principal); S20.229A Contusion of unspecified back wall of thorax, initial encounter; S20.319A Abrasion of unspecified front wall of thorax, initial encounter; W10.8XXA Fall (on) (from) other stairs and steps, initial encounter; Y92.018 Other place in single-family (private) house as the place of occurrence of the external cause; N80.9 Endometriosis, unspecified; Z79.899 Other long term (current) drug therapy; Z88.5 Allergy status to narcotic agent; Z91.048 Other nonmedicinal substance allergy status; F17.210 Nicotine dependence, cigarettes, uncomplicated
CPT/HCPCS: 70450; 71260; 72125; 72128; 80047; 80307; 81001; 82550; 82553; 84702; 85025; 85610; 85730; 93005; 93041; 94760; 96361; 96374; 99285; G0480; J1885; Q9967

== ENCOUNTER 2022-05-15 11:51 | Emergency (ER) | payer OTHER ==
[~2022-05-15] VITALS: Ht 160 cm; Wt 75.7 kg
[~2022-05-15 11:51] MED LIST changes: -DIBU10OI TOP; +DIBU28OI2 TOP; +LIDO5DIS41 TOP; +NORC1TAB7 PO
[2022-05-15 11:52] VITALS: BP 136/77
[2022-05-15] MEDS ORDERED: PARA1IUD IU (12:03)
[2022-05-15 12:58] LABS: BASO % 0.3 % (0.0-1.0); EOS # 0.2 10^3/uL (0.0-0.5); EOS % 2.5 % (0.0-3.0); HEMATOCRIT 42.4 % (36.0-47.0); HEMOGLOBIN 13.9 g/dl (12.0-15.5); LYMPH # 2.8 10^3/uL (1.5-5.0); LYMPH % 37.1 % (24.0-44.0); MEAN CORPUSCULAR HEMOGLOBIN 29.3 pg (27.0-33.0); MEAN CORPUSCULAR HGB CONC 32.8 g/dl (32.0-36.5); MEAN CORPUSCULAR VOLUME 89.5 fl (80.0-96.0); MONO # 0.5 10^3/uL (0.0-0.8); MONO % 5.9 % (2.0-8.0); NEUTROPHILS # 4.1 10^3/uL (1.5-8.5); NEUTROPHILS % 53.9 % (36.0-66.0); PLATELET COUNT, AUTOMATED 275 10^3/uL (150-450); RED BLOOD COUNT 4.74 10^6/uL (4.00-5.40); WHITE BLOOD COUNT 7.6 10^3/uL (4.0-10.0)
[2022-05-15 13:39] LABS: BLOOD UREA NITROGEN 11 MG/DL (7-18); CALCIUM LEVEL 9.3 MG/DL (8.5-10.1); CARBON DIOXIDE LEVEL 29 MEQ/L (21-32); CHLORIDE LEVEL 109 MEQ/L (98-107); GLOMERULAR FILTRATION RATE > 60.0 (>60); GLUCOSE, FASTING 96 MG/DL (70-100); HCG, SERUM QUANTITATIVE < 1.0 MIU/ML; POTASSIUM SERUM 4.1 MEQ/L (3.5-5.1); SODIUM LEVEL 140 MEQ/L (136-145)
== END 2022-05-15 14:44 | disposition left against medical advice (07) ==
LOC: M ED 11:51
DX: Z53.29 Procedure and treatment not carried out because of patient's decision for other reasons (principal)

== ENCOUNTER 2023-09-28 01:41 | Emergency (ER) | payer OTHER, SELFPAY ==
[~2023-09-28] VITALS: Ht 162.6 cm; Wt 79.6 kg
[~2023-09-28 01:41] MED LIST changes: +PARA1IUD IU
[2023-09-28] MEDS ORDERED: AUGM500T34 PO (01:59)
[2023-09-28] MEDS ORDERED: ACET325C5 PO (01:59)
[2023-09-28] MEDS ORDERED: IBUP80TA PO (01:59)
[2023-09-28] MEDS ORDERED: ONDANSETRON 4MG 2ML VIAL IV ONE (02:05)
[2023-09-28] MEDS ORDERED: MORPHINE 4 MG/ML 1ML VIAL IV ONE (02:05)
[2023-09-28 03:08] LABS: BASO % 0.4 % (0.0-1.0); EOS # 0.2 10^3/uL (0.0-0.5); HEMATOCRIT 34.7 % (36.0-47.0); LYMPH # 2.1 10^3/uL (1.5-5.0); LYMPH % 26.7 % (24.0-44.0); MEAN CORPUSCULAR HEMOGLOBIN 30.4 pg (27.0-33.0); MEAN CORPUSCULAR HGB CONC 34.6 g/dl (32.0-36.5); MEAN CORPUSCULAR VOLUME 87.8 fl (80.0-96.0); MONO # 0.4 10^3/uL (0.0-0.8); MONO % 5.6 % (2.0-8.0); NEUTROPHILS # 5.1 10^3/uL (1.5-8.5); PLATELET COUNT, AUTOMATED 308 10^3/uL (150-450); RED BLOOD COUNT 3.95 10^6/uL (4.00-5.40); WHITE BLOOD COUNT 7.9 10^3/uL (4.0-10.0)
[2023-09-28] MEDS ORDERED: LIDOCAINE 2% MDV 20ML VIAL As Ordered ONE (03:29)
[2023-09-28] MEDS ORDERED: LIDOCAINE 2% MDV 20ML VIAL SC ONE (03:30)
[2023-09-28] MEDS ORDERED: BACITRACIN OINTMENT 30GM TUBE TOP PRN (04:05)
[2023-09-28] MEDS ORDERED: HYDR-3713 PO (05:08)
[2023-09-28] MEDS ORDERED: AMOX875T2 PO (05:08)
[2023-09-28] MEDS ORDERED: AUGMENTIN 875 MG TAB PO ONE (05:10)
[2023-09-28] MEDS ORDERED: NORCO 5/325MG TABLET (HOME DOSE PACK) PO ONE (05:10)
[2023-09-28] MEDS ORDERED: NORCO, ANEXSIA 5/325MG TABLET (HYDROcodone/ACETAMINOPHEN) PO ONE (05:15)
[2023-09-28 06:43] VITALS: BP 132/74; TEMP 98.1; O2SAT 99
== END 2023-09-28 06:47 | disposition home or self-care (01) ==
LOC: M ED 01:41
DX: S02.2XXA Fracture of nasal bones, initial encounter for closed fracture (principal); S00.501A Unspecified superficial injury of lip, initial encounter; F17.210 Nicotine dependence, cigarettes, uncomplicated; Z88.5 Allergy status to narcotic agent; Y92.009 Unspecified place in unspecified non-institutional (private) residence as the place of occurrence of the external cause; W18.40XA Slipping, tripping and stumbling without falling, unspecified, initial encounter; Y93.9 Activity, unspecified; Y99.8 Other external cause status
CPT/HCPCS: 12013; 70486; 80047; 85025; 96374; 96375; 99284; J2405

== ENCOUNTER 2023-10-07 13:03 | Day surgery (SDC) | payer OTHER, SELFPAY ==
[~2023-10-07] VITALS: Ht 160 cm; Wt 79.5 kg
[~2023-10-07 13:03] MED LIST changes: +ACET325C5 PO; +AMOX875T2 PO; +AUGM500T34 PO; +HYDR-3713 PO
[2023-10-07] MEDS ORDERED: LIDOCAINE 2% 100MG/5ML SDV (FOR ANES.) As Ordered ONE ×2 (13:34→15:09)
[2023-10-07] MEDS ORDERED: ONDANSETRON 4MG 2ML VIAL As Ordered ONE (13:34)
[2023-10-07] MEDS ORDERED: propofoL 200 MG/20 ML VIAL As Ordered ONE (13:34)
[2023-10-07] MEDS ORDERED: ROCURONIUM BROMIDE 50MG/5ML VIAL As Ordered ONE (13:34)
[2023-10-07] MEDS ORDERED: SUGAMMADEX SODIUM 500 MG/5 ML VIAL (BRIDION) As Ordered ONE (13:34)
[2023-10-07] MEDS ORDERED: fentaNYL 100 MCG/2 ML INJECTION As Ordered ONE (13:35)
[2023-10-07] MEDS ORDERED: MIDAZOLAM INJ 2MG/2ML VIAL As Ordered ONE (13:35)
[2023-10-07] MEDS ORDERED: LR 1,000 ML IV SCH ×3 (13:45→16:25)
[2023-10-07] MEDS ORDERED: LIDOCAINE W/EPINEPHRINE 1% 20ML VIAL As Ordered ONE (14:32)
[2023-10-07] MEDS ORDERED: SUCCINYLCHOLINE 100MG/5ML SYRINGE As Ordered ONE (14:50)
[2023-10-07] MEDS ORDERED: ACETAMINOPHEN 1000MG 100ML IV BAG As Ordered ONE (15:00)
[2023-10-07] MEDS ORDERED: OXYMETAZOLINE 0.05% NASAL SPRAY (AFRIN) As Ordered ONE ×2 (15:06→15:17)
[2023-10-07] MEDS ORDERED: HYDROmorphone HCL 2MG/ML 1ML VIAL As Ordered ONE (15:12)
[2023-10-07] MEDS ORDERED: dexmedeTOMIDine (4MCG/ML)200MCG/50ML BTL (PRECEDEX) As Ordered ONE (15:16)
[2023-10-07] MEDS ORDERED: ONDANSETRON 4MG 2ML VIAL IV PRN (15:50)
[2023-10-07] MEDS ORDERED: fentaNYL 100 MCG/2 ML INJECTION IV PRN (15:50)
[2023-10-07] MEDS ORDERED: oxyCODONE 5MG TAB PO PRN (15:50)
[2023-10-07] MEDS: HYDROMORPHONE HCL 0.5 MG/ 0.5 ML SYRINGE IV PRN ×2 (16:09→16:14)
[2023-10-07] MEDS ORDERED: NORCO, ANEXSIA 5/325MG TABLET (HYDROcodone/ACETAMINOPHEN) PO PRN (16:45)
[2023-10-07 18:34] VITALS: BP 162/95; TEMP 98.4; O2SAT 97
== END 2023-10-07 18:45 | disposition home or self-care (01) ==
LOC: M SDC 13:03
PROVIDERS: ATTEND Otolaryngology
DX: S02.2XXB Fracture of nasal bones, initial encounter for open fracture (principal); R04.0 Epistaxis; W01.0XXA Fall on same level from slipping, tripping and stumbling without subsequent striking against object, initial encounter; Y93.9 Activity, unspecified; Y92.9 Unspecified place or not applicable; F17.210 Nicotine dependence, cigarettes, uncomplicated; Z88.5 Allergy status to narcotic agent
CPT/HCPCS: 21315; 81025; J0131; J0330; J1100; J1170; J2250; J2405; J3010

== ENCOUNTER 2024-08-09 18:07 | Emergency (ER) | payer OTHER, SELFPAY ==
[~2024-08-09] VITALS: Ht 160 cm; Wt 82.1 kg
[2024-08-09 20:19] LABS: BASO % 0.3 % (0.0-1.0); EOS # 0.3 10^3/uL (0.0-0.5); EOS % 2.8 % (0.0-3.0); HEMATOCRIT 33.1 % (36.0-47.0); HEMOGLOBIN 10.5 g/dl (12.0-15.5); LYMPH # 3.5 10^3/uL (1.5-5.0); LYMPH % 29.4 % (24.0-44.0); MEAN CORPUSCULAR HEMOGLOBIN 26.3 pg (27.0-33.0); MEAN CORPUSCULAR HGB CONC 31.7 g/dl (32.0-36.5); MONO # 0.7 10^3/uL (0.0-0.8); MONO % 5.7 % (2.0-8.0); NEUTROPHILS # 7.4 10^3/uL (1.5-8.5); NEUTROPHILS % 61.6 % (36.0-66.0); PLATELET COUNT, AUTOMATED 402 10^3/uL (150-450); RED BLOOD COUNT 3.99 10^6/uL (4.00-5.40)
[2024-08-09 20:29] LABS: ERYTHROCYTE SEDIMENTATION RATE 80 mm/hr (0-20)
[2024-08-09 20:38] LABS: BLOOD UREA NITROGEN 12 MG/DL (9-23); CALCIUM LEVEL 9.4 MG/DL (8.5-10.1); CARBON DIOXIDE LEVEL 27 MMOL/L (20-31); CHLORIDE LEVEL 107 MMOL/L (98-107); CREATININE FOR GFR 0.72 MG/DL (0.55-1.30); GLOMERULAR FILTRATION RATE > 60.0 (>60); GLUCOSE, FASTING 90 MG/DL (60-100); POTASSIUM SERUM 4.2 MMOL/L (3.5-5.1); SODIUM LEVEL 141 MMOL/L (136-145)
[2024-08-09] MEDS: LIDOCAINE W/EPINEPHRINE 1% 20ML VIAL SC ONE (21:15)
[2024-08-09] MEDS ORDERED: BACT800T5 PO (21:38)
[2024-08-09] MEDS: BACTRIM 160MG/800MG DS TAB PO ONE (21:55)
[2024-08-09 22:01] VITALS: BP 156/83
[2024-08-09 22:03] VITALS: TEMP 98.1; O2SAT 99
== END 2024-08-09 22:08 | disposition home or self-care (01) ==
LOC: M ED 18:07
DX: L02.411 Cutaneous abscess of right axilla (principal); F17.200 Nicotine dependence, unspecified, uncomplicated